=== PATIENT | male | born 1975 | race Caucasian/White ===

== ENCOUNTER 2022-07-28 16:28 | Emergency (ER) | payer OTHER, SELFPAY ==
--- NOTE | 2022-07-28 16:33 | ED.SKABFB ---
HPI - Skin/Abscess/Foreign Bdy General Chief complaint: Skin/Abscess/Foreign Body Stated complaint: Skin Sore Time Seen by Provider: 07/28/22 16:33 Source: patient and RN notes reviewed History of Present Illness HPI narrative: patient is a 46-year-old male who presents he urgent care with complaints of a skin sore below the belly button. Patient states he has a history of MRSA and he typically uses and mupirocin cream. Patient states has been worse for the last 2 days. Denies any fever, chills, nausea or vomiting. No other acute complaints. No acute distress noted. Patient aware of the plan of care. Some parts of this dictation were generated by voice recognition software and may contain typographical and/or grammatical inaccuracies. Related Data Home Medications Medication Instructions Recorded Confirmed semaglutide 0.25 mg or 0.5 mg (2 0.25 mg subcut USEASDIRECTD 07/28/22 07/28/22 mg/1.5 mL) subcutaneous pen injector (Ozempic) Allergies Allergy/AdvReac Type Severity Reaction Status Date / Time No Known Allergies Allergy Unverified 07/28/22 16:40 Review of Systems Review of Systems: CONSTITUTIONAL: Denies fever, chills, or sweats. EYES: Denies visual changes, redness, or discharge. ENT: Denies rhinorrhea, congestion, sore throat, or otalgia. CARDIOVASCULAR: Denies chest pain, palpitations, or edema. RESPIRATORY: Denies cough or dyspnea. GASTROINTESTINAL: Denies abdominal pain, nausea, vomiting, or diarrhea. GENITOURINARY: Denies dysuria or hematuria. SKIN: reports of reports of a painful skin sore to the groin MUSCULOSKELETAL: Denies back pain, joint pain, or myalgia. NEUROLOGIC: Denies headache, numbness, or weakness. All other systems reviewed are negative, except as documented in HPI. PMFSH Comments At the time of my signature, I reviewed and agree with the nursing past medical, surgical, social, and family history. There is no relevant family history pertinent to the patient complaint. Exam Narrative: GENERAL: This is a well-nourished, well-developed patient, in no apparent distress. HEAD: normocephalic, atraumatic. EYES: PERRL. Sclera clear/white. Vision is grossly intact. EARS: External ears normal NOSE: External nose normal with no obvious nasal discharge, nares without redness, no rhinorrhea. THROAT: Mucous membranes moist NECK: Neck supple NEURO: awake, alert, and oriented to person, place and time. There were no obvious focal neurologic abnormalities. SKIN: erythemic 2 x 2 cm folliculitis to the groin with mild tenderness EXTREMITIES: No clubbing, cyanosis, or edema. Course Course Level of Care: Express Care Visit Vital Signs Vital signs: Vital Signs Temperature 98.6 F 07/28/22 16:36 Pulse Rate 75 07/28/22 16:36 Respiratory Rate 16 07/28/22 16:36 Blood Pressure 125/82 07/28/22 16:36 Pulse Oximetry 98 07/28/22 16:36 Oxygen Delivery Room Air 07/28/22 16:36 Temperature 98.6 F 07/28/22 16:36 Pulse Rate 75 07/28/22 16:36 Respiratory Rate 16 07/28/22 16:36 Blood Pressure 125/82 07/28/22 16:36 Pulse Oximetry 98 07/28/22 16:36 Oxygen Delivery Room Air 07/28/22 16:36 Reviewed MDM - Skin/Abscess/Foreign Bdy MDM Narrative Medical decision making narrative: advised patient continue the mupirocin cream to the affected area. Complete the oral antibiotic regimen as prescribed. Be sure to eat and drink with medication. Do not shave over the area and make sure using a new razor when area heals. If he develops any increase in symptoms associated fevers, increased redness, nausea or vomiting -go to the emergency room. Follow-up with your PCP within 2-5 days or for worsening symptoms or failure to improve. Critical Care Time Critical Care Time Critical Care Time: No Discharge Plan Discharge Clinical Impression: Folliculitis, Family history of MRSA infection Patient Disposition: Home, Self-Care Condition: Stable Instructio
[2022-07-28 16:36] VITALS: BP 125/82; PULSE 75; RESP 16; TEMP 37; O2SAT 98
== END 2022-07-28 17:08 | disposition home or self-care (01) ==
PROVIDERS: Emergency Provider Nurse Practitioner Family; PCP Internal Medicine
DX: L73.9 Follicular disorder, unspecified (principal)
CPT/HCPCS: 99213; G0463